=== PATIENT | female | born 1965 | race Caucasian/White ===

== ENCOUNTER 2016-12-13 11:45 | Day surgery (SDC) | payer OTHER ==
[~2016-12-13] VITALS: Ht 167.6 cm; Wt 75.0 kg
[~2016-12-13 11:45] MED LIST: LORAZEPAM0.5 MG PO; PEDIA-LAX400 MG PO
[2016-12-16] MEDS ORDERED: ZOFRAN4 MG PO (09:50)
[2016-12-16] MEDS ORDERED: COMPAZINE10 MG PO (09:50)
== END 2016-12-13 14:10 | disposition home or self-care (01) ==
LOC: CATH 11:45
DX: Z45.2 Encounter for adjustment and management of vascular access device (principal); I87.8 Other specified disorders of veins; C50.911 Malignant neoplasm of unspecified site of right female breast
CPT/HCPCS: C1752; C1894; J0690; J1644; J2250; J3010; S0020

== ENCOUNTER → 2017-05-27 | Outpatient (CLI) | payer OTHER ==
[~2017-05-27] MED LIST changes: +COMPAZINE10 MG PO; +HARD NAILS2500 MCG PO; +LATISSE3 ML TP; +VITAMIN B-2100 MG PO; +VITAMIN B122500 MCG PO; +VITAMIN D31000 UNIT PO; +ZOFRAN4 MG PO
== END | disposition home or self-care (01) ==
LOC: AMB 10:57
DX: Z45.2 Encounter for adjustment and management of vascular access device (principal); I87.8 Other specified disorders of veins; Z92.21 Personal history of antineoplastic chemotherapy